=== PATIENT | female | born 1980 | race Caucasian/White ===

== ENCOUNTER 2018-11-08 17:59 | Emergency (ER) | payer SELFPAY ==
[~2018-11-08] VITALS: Ht 162.6 cm; Wt 112.9 kg
[2018-11-08 18:02] VITALS: Ht 162.6 cm; Wt 112.9 kg
[2018-11-08 18:39] LABS: PLATELET COUNT 241 x10^3mcL (130-400); RED CELL DISTRIBUTION WIDTH 13.3 % (11.5-14.5)
[2018-11-08 18:40] LABS: BASOPHIL % 0 % (0-2)
[2018-11-08 18:54] LABS: UA SPECIFIC GRAVITY 1.015 (1.005-1.035); microscopic required? YES; urine erythrocyte NEGATIVE (NEGATIVE)
[2018-11-08 19:13] LABS: CALCIUM 8.5 mg/dL (8.5-10.1); CARBON DIOXIDE 22.2 mmol/L (21-32); CHLORIDE SERUM 102 mmol/L (98-107); CREATININE SERUM 0.9 mg/dL (0.6-1.0); GFR1 > 60 mL/min; GLUCOSE SERUM 109 mg/dL (74-106); POTASSIUM SERUM 3.6 mmol/L (3.5-5.1); SODIUM SERUM 137 mmol/L (136-145)
[2018-11-08 19:26] LABS: ALBUMIN 3.5 g/dL (3.4-5.0); ALKALINE PHOSPHATASE 55 U/L (46-116); ALT/SGPT 140 U/L (14-59); AST/SGOT 75 U/L (15-37); BILIRUBIN TOTAL 0.46 mg/dL (0.20-1.00); TOTAL PROTEIN, SERUM 7.2 g/dL (6.4-8.2)
[2018-11-08 19:29] LABS: ERYTHROCYTE SED RATE 9 mm/hr (0-20)
[2018-11-08 19:56] VITALS: BP 116/68
== END 2018-11-08 19:56 | disposition home or self-care (01) ==
LOC: ED 17:59
PROVIDERS: Emergency Medicine
DX: R00.2 Palpitations (principal); M79.10 Myalgia, unspecified site; R11.10 Vomiting, unspecified; E28.2 Polycystic ovarian syndrome; Z88.0 Allergy status to penicillin
CPT/HCPCS: J1885; J2405